=== PATIENT | male | born 1980 | race Caucasian/White ===

== ENCOUNTER 2016-03-29 13:54 | Inpatient (IN) | payer MEDICARE, MEDICAID ==
--- NOTE | 2016-03-29 14:13 | ED ---
Psych HPI - General Chief Complaint: Psychiatric Symptoms Stated Complaint: Mental Health Time Seen by Provider: 03/29/16 14:05 Source: patient, RN notes reviewed Mode of arrival: ambulatory - History of Present Illness Initial Comments: 36-year-old male presents to the emergency Department chief complaint of suicidal thoughts. Patient states he felt this way for a few days. Patient does admit to a history of depression. Patient states he has been using his medications. Patient states he has had any fever chills. Patient states isn't currently having a plan. Patient states this because stress with his girlfriend. Patient denies any acute health problems. Patient states he did not try anything and he did not attempt any suicide at home. Patient states he has attempted in the past by stabbing himself. Patient states he has been admitted to the psychiatric unit before. Patient denies any recent fever, chills, shortness of breath, chest pain, back pain, abdominal pain, nausea vomiting, numbness or tingling, dysuria or hematuria, constipation or diarrhea, headaches or visual changes, or any other current symptoms. - Related Data Home Medications Medication Instructions Recorded Confirmed FLUoxetine HCL [PROzac] 40 mg PO DAILY 03/29/16 03/29/16 buPROPion SR [Wellbutrin Sr] 150 mg PO BID 03/29/16 03/29/16 lamoTRIgine [LaMICtal] 50 mg PO DAILY 03/29/16 03/29/16 Previous Rx's Medication Instructions Recorded ARIPiprazole [Abilify] 30 mg PO DAILY #10 tab 03/31/15 Allergies Allergy/AdvReac Type Severity Reaction Status Date / Time clarithromycin [From Biaxin] Allergy Rash/Hives Verified 03/29/16 14:13 quetiapine fumarate Allergy Unknown Verified 03/29/16 14:13 [From Seroquel] Review of Systems ROS Statement: Those systems with pertinent positive or pertinent negative responses have been documented in the HPI. ROS Other: All systems not noted in ROS Statement are negative. Past Medical History Past Medical History: No Reported History Additional Past Medical History / Comment(s): left inguinal hernia History of Any Multi-Drug Resistant Organisms: None Reported Past Surgical History: Hernia Repair Past Psychological History: Bipolar, Schizophrenia Smoking Status: Current every day smoker Past Alcohol Use History: None Reported Past Drug Use History: None Reported General Exam Limitations: no limitations General appearance: alert, in no apparent distress ENT exam: Present: normal exam, mucous membranes moist Neck exam: Present: normal inspection. Absent: tenderness, meningismus, lymphadenopathy Respiratory exam: Present: normal lung sounds bilaterally. Absent: respiratory distress, wheezes, rales, rhonchi, stridor Cardiovascular Exam: Present: regular rate, normal rhythm, normal heart sounds. Absent: systolic murmur, diastolic murmur, rubs, gallop, clicks Neurological exam: Present: alert, oriented X3, CN II-XII intact. Absent: motor sensory deficit Psychiatric exam: Present: depressed, suicidal ideation. Absent: homicidal ideation Skin exam: Present: warm, dry, intact Course Vital Signs 03/29/16 13:58 Temperature 98.3 F Pulse Rate 102 H Respiratory 18 Rate Blood Pressure 136/83 O2 Sat by Pulse 94 L Oximetry Medical Decision Making - Medical Decision Making 36-year-old male presents to the emergency department with a chief complaint of suicidal ideation without a plan. At this time the patient does not appear to be suffering from acute medical emergencies. This time patient is cleared to be evaluated by psychiatry. At this time they will admit the patient to psychiatry. The patient is tender on the plan. - Lab Data Lab Results 03/29/16 Range/Units 14:35 Urine Opiates Screen Not Detected (NotDetected) Ur Oxycodone Screen Not Detected (NotDetected) Urine Methadone Screen Not Detected (NotDetected) Ur Propoxyphene Screen Not Detected (NotDetected) Ur Barbiturates Screen Not Detected (NotDetected) U Tricyclic Antidepress Not Detected (NotDetected) Ur Phencyclidine Scrn Not Detected (NotDetected) Ur Amphetamines Screen Not Detected (NotDetected) U Methamphetamines Scrn Not Detected (NotDetected) U Benzodiazepines Scrn Detected H (NotDetected) Urine Cocaine Screen Not Detected (NotDetected) U Marijuana (THC) Screen Not Detected (NotDetected) Disposition Clinical Impression: Depression Disposition: TRANSFER TO PSYCH HOSP/UNIT Time of Disposition: 15:34
[2016-03-29] MEDS ORDERED: MAG HYDROX/AL HYDROX/SIMETH 30 ML CUP PO PRN (15:42)
[2016-03-29] MEDS ORDERED: MAGNESIUM HYDROXIDE 2,400 MG/10 ML CUP PO PRN (15:42)
[2016-03-29] MEDS ORDERED: ACETAMINOPHEN TAB 325 MG TAB PO PRN (15:42)
[2016-03-29 15:49] LABS: Appearance,Urine Clear (Clear); Bilirubin,Urine Negative (Negative); Glucose,Urine (UA) Negative (Negative); Ketones,Urine 1+ (Negative); Leukocyte Esterase,Urine Negative (Negative); Nitrite,Urine Negative (Negative); Protein,Urine Negative (Negative); Specific Gravity,Urine 1.021 (1.001-1.035); UA Billing (MACRO vs. MICRO) CHEM; Urobilinogen,Urine <2.0 mg/dL (<2.0)
[2016-03-29] MEDS: NICOTINE 14MG/24HR PATCH TRANSDERM SCH (16:15)
[2016-03-29 16:54] VITALS: BMI 28.6
[2016-03-29] MEDS ORDERED: HALOPERIDOL LACTATE 5 MG/ML 1 ML VIAL IM PRN (19:50)
[2016-03-29] MEDS ORDERED: LORazepam 2 MG/ML SYRINGE IM PRN (19:52)
[2016-03-29] MEDS ORDERED: OLANZapine 10 MG TAB PO PRN (19:57)
[2016-03-29] MEDS ORDERED: OLANZapine 5 MG TAB PO SCH (21:00)
[2016-03-29] MEDS: OLANZapine 10 MG TAB PO SCH (21:28)
--- NOTE | 2016-03-30 07:54 | HP ---
DATE OF ADMISSION: 03/29/2016. IDENTIFYING DATA: Patient is a 36-year-old male, 1980. He was referred through the emergency room for admission. CHIEF COMPLAINT: The patient was in an agitated state. He was depressed. He had thoughts of suicide. He has had increasing problems with depression over the last few weeks. He identifies the main stress issue being interactions between him and his girlfriend. He has had past suicide attempt. HISTORY OF PRESENTING ILLNESS: Patient has had long-term psychiatric issues. He had a prior psychiatric hospitalization at this facility around 2013. He also has had a hospitalization at [facility]. He was vague about the details. According to medical records, he had a charge of criminal sexual conduct and was required to register as sex offender in that situation. He got depressed and anxious as part of his hospitalization, he was discharged on a combination of Depakote 500 mg twice a day and Abilify 30 mg a day. No further details are available at the time of dictation. He currently reports that he has been on Prozac. He is not sure of the dose, Lamictal which he says Dr. Michelle has recently increased, though he is not sure of the dose and Abilify. He also has been prescribed Wellbutrin recently, though he says it caused him shakes, so he stopped the medication. He also had somewhat of a rash. He was vague about what the indications were for his medications. He says that in the past. He has been diagnosed with bipolar disorder and schizophrenia He has been involved with professional counseling and apparently they have indicated to him that they are making a referral for psychiatrist, though he is not seeing one of late. He has been sleeping poorly. He has loss of motivation, energy and interest. He denies hallucinations or delusions. He does not identify paranoia. He does not indicate any significant past traumas or posttraumatic symptoms. He is admitted for further evaluation. Substance use history: Patient reports that he had he is alcoholic and had both alcohol and marijuana dependence. He stopped both 12 years ago and says he has not had use of abusive substances since then. MEDICAL HISTORY: Patient reports no current or chronic general health complaints. Further medical history, review of systems and physical exam as per medical consultation. FAMILY HISTORY/ SOCIAL HISTORY: Patient reports that he has been involved in up and down relationship with a girlfriend. He said that recently she filed a PPO though he was vague about details. He says he had stress with a child that was lost due to tubal . He did not provide much additional information. Diagnostic studies: Urinalysis unremarkable. Urine drug screen positive for benzodiazepines. MENTAL STATUS EXAM: Patient was dressed in hospital garb. Eye contact was fair. Psychomotor activity was slowed. Speech was monotone. He answered questions with brief responses. He was not too spontaneous or interactive. His affect was flat. His mood reserved. He appeared significantly distressed and anxious. There was no immediate evidence for thought disorder. He was vague about thoughts of self-harm. He had indicated no thoughts of harm to others. Cognitive exam, he did not make an effort to answer formal cognitive questions. He appeared oriented to his current situation. He seemed aware of recent and past events. Attention and was fair, insight limited. Judgment impaired. Fund of knowledge within average range. ASSESSMENT: This 36-year-old male has a complicated long-term history of psychiatric issues. He has had past psychiatric hospitalizations. His current situation and current stressors are clear. There may be some legal issues as part of this admission. We will need to get further information from outside resources. Strengths include his being able to maintain sobriety for 12 years. Weakness includes limited social support network and legal issues. DIAGNOSES: 1. Major depression, rule out psychotic features. 2. Alcohol dependence in remission by patient report. RECOMMENDATIONS: Patient will be admitted for comprehensive medical, psychiatric and psychosocial evaluation. We will make efforts to engage the patient in individual and group therapeutic activities. I will start the patient on Zyprexa 5 mg twice a day. The aim of Zyprexa is to help reduce physiologic stress response as it relates to anxiety and depressive symptoms the patient is reporting. We will need to get further input from outpatient resources. We will focus on stabilization and discharge planning.
[2016-03-30 08:16] LABS: Basophils % (A) 1 %; CH 29.5; CHCM 33.9; Eosinophils # (A) 0.1 k/uL (0-0.7); Eosinophils % (A) 2 %; HCT 46.2 % (39.0-53.0); HGB 15.4 gm/dL (13.0-17.5); Luc # (Auto) 0.09; Luc % (Auto) 2; Lymphocytes # (A) 1.5 k/uL (1.0-4.8); Lymphocytes % (A) 32 %; MCH 29.1 pg (25.0-35.0); MCHC 33.3 g/dL (31.0-37.0); MCV 87.5 fL (80.0-100.0); Mean Platelet Volume 6.6; Monocytes # (A) 0.2 k/uL (0-1.0); Monocytes % (A) 5 %; Neutrophils # (A) 2.8 k/uL (1.3-7.7); Neutrophils % (A) 58 %; RBC 5.28 m/uL (4.30-5.90); WBC 4.8 k/uL (3.8-10.6); WBC (Perox) 4.91
[2016-03-30 08:49] LABS: ALT 33 U/L (21-72); AST 18 U/L (17-59); Alkaline Phosphatase 79 U/L (38-126); Anion Gap 12 mmol/L; Blood Urea Nitrogen 12 mg/dL (9-20); Calcium 9.4 mg/dL (8.4-10.2); Carbon Dioxide 29 mmol/L (22-30); Chloride 104 mmol/L (98-107); Glucose 93 mg/dL (74-99); Non-African American GFR(MDRD) >60 (>60 ml/min/1.73 sqM); Potassium 4.4 mmol/L (3.5-5.1); Sodium 145 mmol/L (137-145); Total Bilirubin 0.7 mg/dL (0.2-1.3)
[2016-03-30] MEDS: NICOTINE 14MG/24HR PATCH TRANSDERM SCH (09:15)
[2016-03-30] MEDS: FLUoxetine HCL 20 MG CAP PO SCH (09:15)
[2016-03-30] MEDS: OLANZapine 10 MG TAB PO SCH ×2 (09:15→21:10)
--- NOTE | 2016-03-30 09:21 | P.PN ---
Progress Note - Text Interval history: The patient is found in his room he follows me to an interview room. The patient was admitted to the mental health unit by and his evaluation note was reviewed. The patient states he presented with acute suicidal ideation. Apparently he had some kind of contact with his girlfriend and her mother threatened to call the police on him. He states there is a PPO in place against him on the girlfriend's by half. He states that he became fearful he would go to long term again and states he can go back. He has a prior history of a criminal sexual conduct conviction involving 11-year-old girl. He reports since 2013 he has been maintained on Prozac, Abilify, Lamictal. These are prescribed by his primary care physician. Apparently his primary care physician also placed him on Wellbutrin and he experienced shaking and a rash. He just started following up at [facility] with a therapist Latonia Youngblood but has not yet seen a prescriber there. The patient reports that he feels safe here in the hospital and he intends on attending group. He has been residing at the [address] [place] [address] but is hoping to reside with his father upon discharge. Mental status exam: The patient is a male he is dressed in his own clothing he is balding he is wearing eyeglasses. Eye contact is appropriate. He has little spontaneous speech but answers questions asked of him briefly. His cognitive abilities appear rather concrete. He reports his mood is better because he feels safer here. He endorses recent depression and hopelessness feelings. He is endorsing no homicidal thoughts. He endorses no auditory or visual hallucinations he is endorsing no specific delusions and we reviewed several types. Insight and judgment limited. He demonstrates no verbal or physical aggressiveness but does report that he struggles with anger feelings and reactions. Plan: The patient will continue on the Prozac and Zyprexa 10 mg twice daily. He is comfortable with this medication change that was made yesterday. We will monitor him for safety. He is encouraged to participate in the milieu. Social work will meet with the patient in terms of discharge planning. We discussed the importance of obeying PPO restrictions and not calling his girlfriend. He requires further psychiatric evaluation for safety reasons.
--- NOTE | 2016-03-31 07:08 | CONS ---
DATE OF CONSULTATION: PSYCH CONSULT I have been out of the office and hospital ill. I came to see this patient and he cannot be found and will see him on rounds the next day.
[2016-03-31] MEDS: FLUoxetine HCL 20 MG CAP PO SCH (08:19)
[2016-03-31] MEDS: OLANZapine 10 MG TAB PO SCH ×2 (08:19→21:13)
[2016-03-31] MEDS: NICOTINE 14MG/24HR PATCH TRANSDERM SCH (08:20)
--- NOTE | 2016-03-31 09:55 | P.PN ---
Progress Note - Text Interval history: The patient is found in group he follows me to an interview room. He reports that his mood is improving. He slept 7-8 hours last night appetite is stable. We discussed his current medications he finds that the Zyprexa is helpful he is reporting no side effects from it. He states he feels better on the Zyprexa and Prozac than he did with the Wellbutrin and Lamictal. He had a phone conversation with his father and does not think he will be able to stay with him but states he is able to stay with a friend named Stuart. We discussed the presenting circumstances and how it is important to obey the PPO order and not contact his ex-girlfriend. He has been attending groups. He found the anger management discussion helpful yesterday. Mental status exam: The patient is alert he seated calmly he is dressed in his own clothing hygiene grooming fair. Eye contact is appropriate. He reports his mood is "better". He feels that suicidal thoughts are resolving. He has no homicidal ideation. He is endorsing no auditory or visual hallucinations he is endorsing no specific delusions. He demonstrates no verbal or physical aggressiveness. Insight and judgment improving. He is oriented to person place and date. He does have a concrete cognitive capacity. Plan: The patient will continue on his current medications we will monitor him for safety and encourage his continued participation in the milieu. Social work will arrange a support meeting if possible. We anticipate discharging him tomorrow if he demonstrates further clinical stability/improvement. Vital signs reviewed. Labs reviewed.
[2016-04-01 08:27] VITALS: BP 128/55; PULSE 76; RESP 18; TEMP 98.1
--- NOTE | 2016-04-01 08:39 | P.DS ---
Providers Date of admission: 03/29/16 15:38 Expected date of discharge: 04/01/16 Attending physician: Scooter Skelton Consults: 03/29/16 15:42 Consult Physician Routine Consulting Provider: Edy Michelle Consult Reason/Comments: Follow up H & P Do you want consulting provider notified?: Yes Primary care physician: Edy Michelle - Discharge Diagnosis(es) (1) Major depressive disorder, recurrent Current Visit: Yes Status: Acute Priority: High Hospital Course: Brief summary of admission note: The patient is a 36-year-old male who was admitted to the mental health unit through the emergency room. He presented depressed agitated and had thoughts of suicide. He reported having increasing symptoms of depression over the last few weeks with the most recent stressor being interactions between him and his former girlfriend. His psychotropic medications had been managed by his primary care physician and he felt that they were not effective. For full detail please refer to the psychiatric evaluation dated 03/29/2016. Summary of hospital course: The patient was admitted to the mental health unit voluntarily. He was initially evaluated by . The patient was continued on Prozac at a dose of 40 mg daily his Abilify was discontinued and he was placed on Zyprexa 10 mg twice daily. The patient attended groups. He reported a resolution of suicidal ideation. He found groups helpful especially those focusing on anger management. He demonstrated no agitated behavior. He was seen for a routine medical consultation. He reported no side effects from his medications. He plans to reside at the [address] [place] [address] or at a friend's home upon discharge. We discussed the importance of him not violating the PPO involving his former girlfriend. At no point did he voice any thoughts of harming anyone else. Mental status exam: The patient is alert he seated calmly in the chair he wears eyeglasses he is dressed casually in his own clothes. Hygiene grooming adequate. He is pleasant he is cooperative and easily directable. He reports his mood is "good". Affect is euthymic in appearance. He denies having any hopelessness thinking or any suicidal or homicidal ideation intent or plan. He notes having no aggressive impulses. He is endorsing no auditory or visual hallucinations he is endorsing no specific delusions as we reviewed several types. Thought process is linear brief. He demonstrates no tangential thinking loose associations or flight of ideas. Insight and judgment improved, grossly intact. He demonstrates no verbal or physical aggressiveness. He is alert and oriented to person place and date. Cognitively speaking he is concrete. Impressions 1. Major depressive disorder recurrent severe without psychosis, alcohol use disorder in sustained remission 2. Psychosocial dysfunction due to exacerbated psychiatric symptoms and also relationship strain Plan: The patient will be discharged from the mental health unit today. He plans to reside at the detention or with a friend. He will continue on Prozac 40 mg daily and Zyprexa 10 mg twice daily. There is no imminent safety risk is appropriate for continued care as an outpatient. Social work will arrange his outpatient mental health follow-up appointment. He was offered an opportunity to have an in person support meeting. He has abstained from any alcohol or substance use and he is encouraged to continue doing so. He reports no immediate access or ownership of firearms. He is encouraged to present to the hospital again with any acute psychiatric symptoms. Patient Condition at Discharge: Stable Plan - Discharge Summary Discharge Medication List ARIPiprazole [Abilify] 30 mg PO DAILY #10 tab 03/31/15 [Rx] FLUoxetine HCL [PROzac] 40 mg PO DAILY 03/29/16 [History] buPROPion SR [Wellbutrin Sr] 150 mg PO BID 03/29/16 [History] lamoTRIgine [LaMICtal] 50 mg PO DAILY 03/29/16 [History] Follow up Appointment(s)/Referral(s): Edy Michelle MD [Primary Care Provider] - 1-2 days
[2016-04-01] MEDS: OLANZapine 10 MG TAB PO SCH (09:22)
[2016-04-01] MEDS: FLUoxetine HCL 20 MG CAP PO SCH (09:22)
== END 2016-04-01 10:31 | disposition home or self-care (01) | DRG 885 ==
LOC: EC 13:54 → 3MHU 15:38
PROVIDERS: ADMIT Psychiatry & Neurology Psychiatry; ATTEND Psychiatry & Neurology Psychiatry
DX: F33.2 Major depressive disorder, recurrent severe without psychotic features (principal); R45.851 Suicidal ideations; F41.9 Anxiety disorder, unspecified; F10.21 Alcohol dependence, in remission; F17.200 Nicotine dependence, unspecified, uncomplicated; F59 Unspecified behavioral syndromes associated with physiological disturbances and physical factors
CPT/HCPCS: 80053; 80306; 81003; 82075; 84443; 85025; 99285

== ENCOUNTER 2016-05-04 23:46 | Emergency (ER) | payer MEDICARE, OTHER ==
[2016-05-04 23:52] VITALS: TEMP 97
[2016-05-04] MEDS ORDERED: KETOROLAC 60 MG/2 ML VIAL IM STA (23:59)
[2016-05-04] MEDS ORDERED: ORPHENADRINE 30 MG/ML 2 ML VIAL IM STA (23:59)
--- NOTE | 2016-05-05 00:04 | ED ---
Extremity Problem HPI - General Chief complaint: Extremity Problem,Nontraumatic Stated complaint: L Shoulder Pain Time Seen by Provider: 05/04/16 23:54 Source: patient, RN notes reviewed Mode of arrival: ambulatory Limitations: no limitations - History of Present Illness Initial comments: 36-year-old male presents to the emergency department with a chief complaint of left shoulder pain. Patient states he started with pain along the top of his left shoulder and sometimes will cause him to have pain when he moves his arm. Patient states moving the arm past about a 90 angle causes some increased discomfort. Patient states there is no falls traumas or injuries. Patient states sometimes his neck will get stuck due to the chest as well. Patient states everything went to force him he was concerned. Patient denies any injury that he is aware of to the area.Patient denies any recent fever, chills, shortness of breath, chest pain, back pain, abdominal pain, nausea vomiting, numbness or tingling, dysuria or hematuria, constipation or diarrhea, headaches or visual changes, or any other current symptoms. - Related Data Previous Rx's Medication Instructions Recorded FLUoxetine HCL [PROzac] 40 mg PO DAILY #30 capsule 04/01/16 OLANZapine [ZyPREXA] 10 mg PO BID #60 tab 04/01/16 Orphenadrine [Norflex] 100 mg PO Q12H #10 tablet.er 05/05/16 Allergies Allergy/AdvReac Type Severity Reaction Status Date / Time clarithromycin [From Biaxin] Allergy Rash/Hives Verified 05/04/16 23:52 quetiapine fumarate Allergy Unknown Verified 05/04/16 23:52 [From Seroquel] Review of Systems ROS Statement: Those systems with pertinent positive or pertinent negative responses have been documented in the HPI. ROS Other: All systems not noted in ROS Statement are negative. Past Medical History Past Medical History: No Reported History Additional Past Medical History / Comment(s): left inguinal hernia History of Any Multi-Drug Resistant Organisms: None Reported Past Surgical History: Hernia Repair Past Psychological History: Bipolar, Depression, Schizoaffective Disorder, Schizophrenia Smoking Status: Former smoker Past Alcohol Use History: None Reported Past Drug Use History: Cocaine, Marijuana Additional Drug Use History / Comment(s): Stated he has not used Crack or Marijuana in 12 years. Patient currently tested positive for Benzo, but denies any benzo use General Exam - General Exam Comments Initial Comments: General: The patient is awake and alert, in no distress, and does not appear acutely ill. Neck: The neck is supple, there is no tenderness. Cardiovascular: There is a regular rate and rhythm. No murmur, rub or gallop is appreciated. Respiratory: Lungs are clear to auscultation, respirations are non-labored, breath sounds are equal. No wheezes, stridor, rales, or rhonchi. Musculoskeletal: Sensation intact with 2+ pulses Left upper joint. Full range of motion of left elbow. Patient's range of motion left shoulder however pain passing degrees in all adler. Patient does have tenderness patient along the trapezius muscle on the left. Full range of motion of the neck with no pain to palpation. Neurological: CN II-XII intact, There are no obvious motor or sensory deficits. Coordination appears grossly intact. Speech is normal. Skin: Skin is warm and dry and no rashes or lesions are noted. Psychiatric: Normal mood and affect. Limitations: no limitations Course Vital Signs 05/04/16 23:48 Temperature 97.0 F L Pulse Rate 79 Respiratory 18 Rate Blood Pressure 121/68 O2 Sat by Pulse 97 Oximetry Medical Decision Making - Medical Decision Making 36-year-old male presents emergency department chief complaint of left shoulder pain. This appears to be a trapezius strain. X-ray does not show any acute process. We'll start patient on muscle relaxers we discussed heat return parameters and follow-up. We discussed all the patient's questions. He stated that he understood and he has been given the plan. All questions have been answered. He will be discharged. - Radiology Data Radiology results: report reviewed, image reviewed Disposition Clinical Impression: Strain of left trapezius muscle Disposition: HOME SELF-CARE Condition: Stable Instructions: Muscle Strain (ED) Additional Instructions: Please use medication as discussed. Please follow up with family doctor if symptoms have not improved over the next two days. Please return to the emergency room if your symptoms increase or worsen or for any other concerns. Prescriptions: Orphenadrine [Norflex] 100 mg PO Q12H #10 tablet.er Referrals: Edy Michelle MD [Primary Care Provider] - 1-2 days Time of Disposition: 01:03
--- NOTE | 2016-05-05 00:36 | XR ---
EXAM: XR Left Shoulder Complete, 2 or More Views. CLINICAL HISTORY: Reason: Pain TECHNIQUE: Two or more views of the left shoulder. COMPARISON: No relevant prior studies available. FINDINGS: Bones/joints: Small subcentimeter sclerotic lesion in the inferior glenoid probably benign bone island. No acute fracture. No dislocation. Soft tissues: Unremarkable. IMPRESSION: No acute findings.
[2016-05-05 01:21] VITALS: BP 119/79; PULSE 70; RESP 16
== END 2016-05-05 01:19 | disposition home or self-care (01) ==
LOC: EC 23:46
DX: S29.012A Strain of muscle and tendon of back wall of thorax, initial encounter (principal); Z87.891 Personal history of nicotine dependence; Z88.1 Allergy status to other antibiotic agents; Z88.8 Allergy status to other drugs, medicaments and biological substances; X50.9XXA Other and unspecified overexertion or strenuous movements or postures, initial encounter
CPT/HCPCS: 73030; 99283; 96372 ×2; J2360; J1885

== ENCOUNTER 2017-09-06 22:14 | Emergency (ER) | payer MEDICARE, OTHER ==
[2017-09-06 22:30] VITALS: RESP 18
[2017-09-06] MEDS ORDERED: IBUPROFEN 800 MG TAB PO STA (22:59)
[2017-09-06] MEDS ORDERED: ACETAMINOPHEN TAB 500 MG TAB PO STA (22:59)
[2017-09-06] MEDS ORDERED: SULFAMETH-TMP DS STARTER PACK 2 TAB BTL PO STA (23:00)
[2017-09-06] MEDS ORDERED: LIDOCAINE 1% INJ 10MG/ML (20 ML MDV) SQ STA (23:00)
--- NOTE | 2017-09-06 23:02 | ED ---
Skin/Abscess/FB HPI - General Chief complaint: Skin/Abscess/Foreign Body Stated complaint: abscess/cough Time Seen by Provider: 09/06/17 22:41 Source: patient, RN notes reviewed, old records reviewed Mode of arrival: ambulatory Limitations: no limitations - History of Present Illness Initial comments: Patient is a 37-year-old male presents for his arm she went cough congestion for the last 2 days. He also reports that over the past week he has a abscess over his tailbone. Patient reports that his ever had an abscess over his stone before. Patient reports no peripheral paresthesias. No saddle anesthesias. No trauma to the lower back. Patient ports that his cough has been somewhat productive. He is a smoker. - Related Data Previous Rx's Medication Instructions Recorded FLUoxetine HCL [PROzac] 40 mg PO DAILY #30 capsule 04/01/16 OLANZapine [ZyPREXA] 10 mg PO BID #60 tab 04/01/16 Orphenadrine [Norflex] 100 mg PO Q12H #10 tablet.er 05/05/16 Sulfamethox-Tmp 800-160Mg [Bactrim 2 tab PO Q12HR #40 tab 09/06/17 DS 800-160 mg] Allergies Allergy/AdvReac Type Severity Reaction Status Date / Time clarithromycin [From Biaxin] Allergy Rash/Hives Verified 09/06/17 22:29 quetiapine fumarate Allergy Unknown Verified 09/06/17 22:29 [From Seroquel] Review of Systems ROS Statement: Those systems with pertinent positive or pertinent negative responses have been documented in the HPI. ROS Other: All systems not noted in ROS Statement are negative. Past Medical History Past Medical History: No Reported History Additional Past Medical History / Comment(s): left inguinal hernia History of Any Multi-Drug Resistant Organisms: None Reported Past Surgical History: Hernia Repair Past Psychological History: Bipolar, Depression, Schizoaffective Disorder, Schizophrenia Smoking Status: Current every day smoker Past Alcohol Use History: None Reported Past Drug Use History: Cocaine, Marijuana General Exam - General Exam Comments Initial Comments: 29-year-old male. Alert and oriented. No significant distress. Limitations: no limitations General appearance: alert, in no apparent distress Head exam: Present: atraumatic, normocephalic, normal inspection Eye exam: Present: normal appearance, PERRL, EOMI. Absent: scleral icterus, conjunctival injection, periorbital swelling ENT exam: Present: normal exam, mucous membranes moist Neck exam: Present: normal inspection. Absent: tenderness, meningismus, lymphadenopathy Respiratory exam: Present: normal lung sounds bilaterally. Absent: respiratory distress, wheezes, rales, rhonchi, stridor Cardiovascular Exam: Present: regular rate, normal rhythm, normal heart sounds. Absent: systolic murmur, diastolic murmur, rubs, gallop, clicks GI/Abdominal exam: Present: soft, normal bowel sounds. Absent: distended, tenderness, guarding, rebound, rigid Extremities exam: Present: normal inspection, full ROM, normal capillary refill. Absent: tenderness, pedal edema, joint swelling, calf tenderness Back exam: Absent: normal inspection (Minutes of erythematous pilonidal abscess. Measures approximately 5 cm..) Neurological exam: Present: alert, oriented X3, CN II-XII intact Psychiatric exam: Present: normal affect, normal mood Course Vital Signs 09/06/17 09/07/17 22:26 00:03 Temperature 99.8 F H 98.6 F Pulse Rate 113 H 102 H Respiratory 18 18 Rate Blood Pressure 125/80 135/86 O2 Sat by Pulse 97 98 Oximetry Procedures - Incision & Drainage Consent Obtained: verbal consent Time Out Performed?: No Site: buttock Size (cm): 5 Anesthetic Used: lidocaine 1% Amount (mLs): 6 I&D Cleaning Method: Iodine Sterile Field Used?: Yes Scalpel Used: #11 I&D Drainage Obtained: Pus, Blood Packing: Iodoform Culture Obtained?: Yes Patient Tolerated Procedure: well, no complications Medical Decision Making - Medical Decision Making Patient is a 29-year-old male chief complaint of cough congestion as well as an abscess over his tailbone. Patient since a pilonidal abscess. Incision and drainage was performed. Approximately 10 mL of pus was removed. Iodoform packing was placed. I discussed that he should follow-up with on-call surgeon for further treatment and expiration and repacking. He also complains of a cough and congestion. Chest x-ray shows no evidence of pneumonia. This time we 'll put the Patient on antibiotics to cover for the abscess. Culture obtained. - Radiology Data Radiology results: report reviewed Subsequent methanol atelectasis left lung base. Inspiration is decreased slightly compared old exam. Disposition Clinical Impression: Pilonidal abscess Disposition: HOME SELF-CARE Condition: Good Instructions: Abscess Incision and Drainage (ED) Additional Instructions: Patient advised follow-up with on-call surgeon. Take the antibiotics as prescribed. Follow-up with her primary care physician as well. Return to the emergency department if any alarming signs or symptoms occur. Prescriptions: Sulfamethox-Tmp 800-160Mg [Bactrim DS 800-160 mg] 2 tab PO Q12HR #40 tab Is patient prescribed a controlled substance at d/c from ED?: No When asked, does pt state using other controlled substances?: No If prescribed controlled substance>3 days was MAPS reviewed?: No If opioid is for acute pain is fill amount 7 days or less?: No If Rx opioid, was Start Talking consent form obtained?: No Referrals: Edy Michelle MD [Primary Care Provider] - 1-2 days Karlene Grossman MD [STAFF PHYSICIAN] - 1-2 days Time of Disposition: 23:55
--- NOTE | 2017-09-06 23:02 | XR ---
EXAMINATION TYPE: XR chest 2V DATE OF EXAM: 09/06/2017 COMPARISON: 12/19/2015 HISTORY: Cough TECHNIQUE: Frontal and lateral views of the chest are obtained. FINDINGS: There is some linear density at the left lung base. Heart and mediastinum are normal. Diap hragm is normal. There is no heart failure. Bony thorax is intact. IMPRESSION: Subsegmental atelectasis at the left lung base. Inspiration is decreased slightly compar ed to old exam.
[2017-09-07 00:05] VITALS: BP 135/86; PULSE 102; TEMP 98.6
--- NOTE | 2017-09-08 08:33 | CDI ---
Documentation Clarification OP Dear JULIO C Hernandez/ Gustavo Dupont MD Please do addendum to ED report for missing procedure for Incision and Drainage , Pilonidal Cyst Thank you, Melissa Boateng Alliance Manager If you have any questions, please contact [employer] at [phone] [facility]
== END 2017-09-07 00:03 | disposition home or self-care (01) ==
LOC: EC 22:14
DX: L05.01 Pilonidal cyst with abscess (principal); R05 Cough; R09.81 Nasal congestion; F17.200 Nicotine dependence, unspecified, uncomplicated; Z88.1 Allergy status to other antibiotic agents; Z88.8 Allergy status to other drugs, medicaments and biological substances
CPT/HCPCS: 99284; 10080; 87070; 87205; 71046; J2001

== ENCOUNTER 2018-11-15 21:22 | Emergency (ER) | payer MEDICARE, OTHER ==
[2018-11-15 21:32] VITALS: BP 130/87; PULSE 119; RESP 18; TEMP 98.1
--- NOTE | 2018-11-15 22:12 | ED ---
Psych HPI - General Chief Complaint: Psychiatric Symptoms Stated Complaint: Vomiting/Hives Time Seen by Provider: 11/15/18 21:35 Source: patient, RN notes reviewed Mode of arrival: ambulatory Limitations: no limitations - History of Present Illness Initial Comments: This a 38-year-old male presents emergency department for psychiatric evaluation medication adjustment. Patient states he was started on Depakote for bipolar disorder and schizophrenia. Patient states that it's making him sick. Patient states may count which at times. Patient states that he cannot keep it down. Patient has no physical complaints at this time. Denies being suicidal or homicidal denies any current illicit drug use no alcohol abuse - Related Data Home Medications Medication Instructions Recorded Confirmed ARIPiprazole [Abilify] 30 mg PO DAILY 11/15/18 11/15/18 Atorvastatin [Lipitor] 40 mg PO DAILY 11/15/18 11/15/18 Divalproex Sodium [Depakote] 1,000 mg PO BID 11/15/18 11/15/18 Naproxen 500 mg PO BID PRN 11/15/18 11/15/18 Previous Rx's Medication Instructions Recorded OLANZapine [ZyPREXA] 10 mg PO BID #60 tab 04/01/16 Allergies Allergy/AdvReac Type Severity Reaction Status Date / Time clarithromycin [From Biaxin] Allergy Rash/Hives Verified 11/15/18 23:23 quetiapine fumarate Allergy Unknown Verified 11/15/18 23:23 [From Seroquel] Review of Systems ROS Statement: Those systems with pertinent positive or pertinent negative responses have been documented in the HPI. ROS Other: All systems not noted in ROS Statement are negative. Past Medical History Past Medical History: No Reported History Additional Past Medical History / Comment(s): left inguinal hernia History of Any Multi-Drug Resistant Organisms: None Reported Past Surgical History: Hernia Repair Past Psychological History: Bipolar, Depression, Schizoaffective Disorder, Schizophrenia Smoking Status: Current every day smoker Past Alcohol Use History: None Reported Past Drug Use History: Cocaine, Marijuana General Exam Limitations: no limitations General appearance: alert, in no apparent distress Head exam: Present: atraumatic, normocephalic, normal inspection Eye exam: Present: normal appearance, PERRL, EOMI. Absent: scleral icterus, conjunctival injection, periorbital swelling ENT exam: Present: normal exam, normal oropharynx, mucous membranes moist Neck exam: Present: normal inspection, full ROM. Absent: tenderness, meningismus, lymphadenopathy Respiratory exam: Present: normal lung sounds bilaterally. Absent: respiratory distress, wheezes, rales, rhonchi, stridor Cardiovascular Exam: Present: regular rate, normal rhythm, normal heart sounds. Absent: systolic murmur, diastolic murmur, rubs, gallop, clicks GI/Abdominal exam: Present: soft, normal bowel sounds. Absent: distended, tenderness, guarding, rebound, rigid Neurological exam: Present: alert, oriented X3, CN II-XII intact Psychiatric exam: Present: normal affect, normal mood Skin exam: Present: warm, dry, intact, normal color. Absent: rash Course Vital Signs 11/15/18 21:29 Temperature 98.1 F Pulse Rate 119 H Respiratory 18 Rate Blood Pressure 130/87 O2 Sat by Pulse 97 Oximetry Medical Decision Making - Medical Decision Making 38-year-old male presented for psychiatric evaluation, medication adjustment. Patient states his typical is making him sick. Patient did have recent increase of his Depakote level was drawn which she is subtherapeutic. Patient will be discharged - Lab Data Lab Results 11/15/18 Range/Units 23:00 Valproic Acid 12.9 ug/mL Disposition Clinical Impression: Depression, Medication reaction Disposition: HOME SELF-CARE Condition: Stable Instructions (If sedation given, give patient instructions): Depression (DC) Additional Instructions: Please return to the Emergency Department if symptoms worsen or any other concerns. Is patient prescribed a controlled substance at d/c from ED?: No Referrals: Edy Michelle MD [Primary Care Provider] - 1-2 days Time of Disposition: 23:38
== END 2018-11-16 00:12 | disposition home or self-care (01) ==
LOC: EC 21:22
DX: F31.9 Bipolar disorder, unspecified (principal); T42.6X5A Adverse effect of other antiepileptic and sedative-hypnotic drugs, initial encounter; F25.9 Schizoaffective disorder, unspecified; F17.200 Nicotine dependence, unspecified, uncomplicated; Z79.1 Long term (current) use of non-steroidal anti-inflammatories (NSAID); Z79.899 Other long term (current) drug therapy; Z88.1 Allergy status to other antibiotic agents; Z88.8 Allergy status to other drugs, medicaments and biological substances
CPT/HCPCS: 36415; 80164; 82075; 99284

== ENCOUNTER 2019-12-13 22:27 | Emergency (ER) | payer MEDICARE, OTHER ==
[2019-12-13] MEDS ORDERED: IPRATROPIUM-ALBUTEROL 3 ML NEB INHALATION STA (23:06)
[2019-12-13] MEDS ORDERED: methylPREDNISolone SOD SUCCI 125 MG/2 ML VIAL IM ONE (23:35)
[2019-12-13] MEDS ORDERED: guaiFENesin-Coden 100-10MG/5ML 10 ML CUP PO STA (23:35)
--- NOTE | 2019-12-13 23:38 | XR ---
EXAMINATION TYPE: XR chest 1V DATE OF EXAM: 12/13/2019 COMPARISON: 09/06/2017 HISTORY: Cough TECHNIQUE: Single view FINDINGS: There is no heart failure nor confluent pneumonic infiltrate. Costophrenic angles are clear . Bony thorax is intact. IMPRESSION: No active cardiopulmonary disease. Normal heart. Inspiration improved compared to last ex am. There is clearing of mild subsegmental atelectasis left lung base..
--- NOTE | 2019-12-14 00:12 | ED ---
URI HPI - General Chief Complaint: Upper Respiratory Infection Stated Complaint: cough Time Seen by Provider: 12/13/19 23:14 Source: patient Mode of arrival: ambulatory Limitations: no limitations - History of Present Illness Initial Comments: 39-year-old male patient presents to the emergency department today for evaluation of cough. Patient states he is an coughing for the last week. He states that the cough is becoming more severe. He does report white to clear sputum production. Denies any shortness of breath. States his chest does hurt when he coughs. Denies taking any medication for his symptoms. States he does have a history of asthma and has been using a Ventolin inhaler with little relief. Denies any hemoptysis. Denies fever or chills. Denies history of smoking. Denies nausea, vomiting, diarrhea. States it has had mild nasal congestion and sore throat. Denies any known exposure to COVID-19. Patient denies any recent rash, abdominal pain, constipation, back pain, numbness, tingling, dizziness, weakness, hematuria, dysuria, urinary urgency, urinary frequency, headache, visual changes, or any other complaints. - Related Data Home Medications Medication Instructions Recorded Confirmed ARIPiprazole [Abilify] 30 mg PO DAILY 11/15/18 11/15/18 Atorvastatin [Lipitor] 40 mg PO DAILY 11/15/18 11/15/18 Divalproex Sodium [Depakote] 1,000 mg PO BID 11/15/18 11/15/18 Naproxen 500 mg PO BID PRN 11/15/18 11/15/18 Previous Rx's Medication Instructions Recorded OLANZapine [ZyPREXA] 10 mg PO BID #60 tab 04/01/16 guaiFENesin-Coden 100-10MG/5ML 10 ml PO Q6H PRN 3 Days #120 ml 12/14/19 [Robitussin AC] methylPREDNISolone [Medrol Dose 4 mg PO DIRECTED #1 pack 12/14/19 Pack] Allergies Allergy/AdvReac Type Severity Reaction Status Date / Time clarithromycin [From Biaxin] Allergy Rash/Hives Verified 12/13/19 22:48 quetiapine fumarate Allergy Unknown Verified 12/13/19 22:48 [From Seroquel] Review of Systems ROS Statement: Those systems with pertinent positive or pertinent negative responses have been documented in the HPI. ROS Other: All systems not noted in ROS Statement are negative. Past Medical History Past Medical History: No Reported History Additional Past Medical History / Comment(s): left inguinal hernia History of Any Multi-Drug Resistant Organisms: None Reported Past Surgical History: Hernia Repair Past Psychological History: Bipolar, Depression, Schizoaffective Disorder, Schizophrenia Smoking Status: Never smoker Past Alcohol Use History: None Reported Past Drug Use History: Cocaine, Marijuana General Exam Limitations: no limitations General appearance: alert, in no apparent distress, other (This is a well developed, well nourished adult male patient in no acute distress. Vital signs upon presentation are temperature 97.7F, pulse 99, respirations 20, blood pressure 138/83, pulse ox 98% on room air.) Eye exam: Present: normal appearance, PERRL, EOMI. Absent: scleral icterus, conjunctival injection, periorbital swelling ENT exam: Present: normal exam, normal oropharynx, mucous membranes moist Respiratory exam: Present: normal lung sounds bilaterally, other (Frequent cough noted). Absent: respiratory distress, wheezes, rales, rhonchi, stridor Cardiovascular Exam: Present: regular rate, normal rhythm, normal heart sounds. Absent: systolic murmur, diastolic murmur, rubs, gallop, clicks GI/Abdominal exam: Present: soft, normal bowel sounds. Absent: distended, tenderness, guarding, rebound, rigid Neurological exam: Present: alert, oriented X3, CN II-XII intact Psychiatric exam: Present: normal affect, normal mood Skin exam: Present: warm, dry, intact, normal color. Absent: rash Course Vital Signs 12/13/19 12/13/19 12/13/19 22:44 23:10 23:19 Temperature 97.7 F Pulse Rate 99 98 96 Respiratory 20 Rate Blood Pressure 138/83 O2 Sat by Pulse 98 Oximetry 12/14/19 00:23 Temperature 98.2 F Pulse Rate 81 Respiratory 18 Rate Blood Pressure 125/79 O2 Sat by Pulse 97 Oximetry Medical Decision Making - Medical Decision Making 39-year-old male patient presented to the emergency department today for evaluation of worsening cough over the last week. Physical examination did reveal clear equal lung sounds. Vital signs are within normal ranges, oxygen saturation 98% on room air. Chest x-ray was obtained and showed no acute cardiopulmonary process. Patient did have frequent cough while in the department. He is given cough medication. To be discharged with steroids for possible bronchitis. He does have Ventolin inhaler at home he is instructed to continue to using this. COVID-19 swab is pending. He is instructed to follow- up with his primary care physician for recheck in 1-2 days. Return parameters were discussed in detail. He verbalizes understanding and agrees with this plan. - Radiology Data Radiology results: report reviewed, image reviewed One view x-ray of the chest is obtained. Report was reviewed in its entirety. Impression by Dr. Coats shows no active cardiopulmonary disease. Normal heart. Inspiration improved compared to last exam. There is clearing of mild subsegmental atelectasis left lung base. Disposition Clinical Impression: Acute bronchitis Disposition: HOME SELF-CARE Condition: Good Instructions (If sedation given, give patient instructions): Acute Bronchitis (ED) Additional Instructions: Take medications as directed. Follow-up with your primary care physician for recheck in 1-2 days. Return to the emergency department for any new, worsening, or concerning symptoms. Prescriptions: methylPREDNISolone [Medrol Dose Pack] 4 mg PO DIRECTED #1 pack guaiFENesin-Coden 100-10MG/5ML [Robitussin AC] 10 ml PO Q6H PRN 3 Days #120 ml PRN Reason: Cough Is patient prescribed a controlled substance at d/c from ED?: No Referrals: Edy Michelle MD [Primary Care Provider] - 1-2 days Time of Disposition: 00:12
[2019-12-14 00:25] VITALS: BP 125/79; PULSE 81; RESP 18; TEMP 98.2
== END 2019-12-14 00:24 | disposition home or self-care (01) ==
LOC: EC 22:27
DX: J20.9 Acute bronchitis, unspecified (principal); F31.9 Bipolar disorder, unspecified; F25.9 Schizoaffective disorder, unspecified; Z79.899 Other long term (current) drug therapy; Z20.828 Contact with and (suspected) exposure to other viral communicable diseases
CPT/HCPCS: 94640; 71045; 99283; 96372; U0003; J2930

== ENCOUNTER 2020-05-22 19:36 | Emergency (ER) | payer MEDICARE, OTHER ==
--- NOTE | 2020-05-22 21:31 | XR ---
EXAMINATION TYPE: XR chest 2V DATE OF EXAM: 05/22/2020 COMPARISON: 12/13/2019 HISTORY: Cough TECHNIQUE: 2 views FINDINGS: There is some minimal linear density left lung base. There is no heart failure. Heart size is normal. Bony thorax is intact. There is slight blunting of the costophrenic angles. IMPRESSION: There is minimal subsegmental atelectasis and pleural reaction at the lung bases which is a change compared to old exam. Normal heart.
[2020-05-22 22:59] VITALS: RESP 20
[2020-05-22] MEDS ORDERED: ACETAMINOPHEN TAB 325 MG TAB PO STA (22:59)
[2020-05-22] MEDS ORDERED: IBUPROFEN 600 MG TAB PO STA (22:59)
--- NOTE | 2020-05-22 23:10 | ED ---
Fever HPI - General Chief Complaint: Fever Stated Complaint: Fever,cough Time Seen by Provider: 05/22/20 22:52 Source: patient, RN notes reviewed Mode of arrival: ambulatory Limitations: no limitations - History of Present Illness Initial Comments: Patient is a 40-year-old male that presents to emergency room complaining of fever and Covid symptoms. He notes that he tested positive for Covid today in the emergency room in his had symptoms for 2 days. He has a cough and a fever. He was in no apparent distress or pain while sitting in bed during exam and interview. He denied any chest pain headache nausea vomiting diarrhea constipation fatigue weakness numbness tingling. - Related Data Home Medications Medication Instructions Recorded Confirmed ARIPiprazole [Abilify] 30 mg PO DAILY 11/15/18 11/15/18 Atorvastatin [Lipitor] 40 mg PO DAILY 11/15/18 11/15/18 Divalproex Sodium [Depakote] 1,000 mg PO BID 11/15/18 11/15/18 Naproxen 500 mg PO BID PRN 11/15/18 11/15/18 Previous Rx's Medication Instructions Recorded OLANZapine [ZyPREXA] 10 mg PO BID #60 tab 04/01/16 guaiFENesin-Coden 100-10MG/5ML 10 ml PO Q6H PRN 3 Days #120 ml 12/14/19 [Robitussin AC] methylPREDNISolone [Medrol Dose 4 mg PO DIRECTED #1 pack 12/14/19 Pack] Allergies Allergy/AdvReac Type Severity Reaction Status Date / Time clarithromycin [From Biaxin] Allergy Rash/Hives Verified 05/22/20 21:16 quetiapine fumarate Allergy Unknown Verified 05/22/20 21:16 [From Seroquel] Review of Systems ROS Statement: Those systems with pertinent positive or pertinent negative responses have been documented in the HPI. ROS Other: All systems not noted in ROS Statement are negative. Past Medical History Past Medical History: No Reported History Additional Past Medical History / Comment(s): left inguinal hernia History of Any Multi-Drug Resistant Organisms: None Reported Past Surgical History: Hernia Repair Past Psychological History: Bipolar, Depression, Schizoaffective Disorder, Schizophrenia Smoking Status: Former smoker Past Alcohol Use History: None Reported Past Drug Use History: Cocaine, Marijuana General Exam Limitations: no limitations General appearance: alert, in no apparent distress, obese Head exam: Present: atraumatic, normocephalic, normal inspection Eye exam: Present: normal appearance, PERRL, EOMI. Absent: scleral icterus, conjunctival injection, periorbital swelling ENT exam: Present: normal exam, mucous membranes moist Neck exam: Present: normal inspection. Absent: tenderness, meningismus, lymphadenopathy Respiratory exam: Present: normal lung sounds bilaterally, decreased breath sounds (And left lower lobe.). Absent: respiratory distress, wheezes, rales, rhonchi, stridor Cardiovascular Exam: Present: regular rate, normal rhythm, normal heart sounds. Absent: systolic murmur, diastolic murmur, rubs, gallop, clicks GI/Abdominal exam: Present: soft, normal bowel sounds. Absent: distended, tenderness, guarding, rebound, rigid Extremities exam: Present: normal inspection, full ROM, normal capillary refill. Absent: tenderness, pedal edema, joint swelling, calf tenderness Neurological exam: Present: alert, oriented X3, CN II-XII intact Psychiatric exam: Present: normal affect, normal mood Skin exam: Present: warm, dry, intact, normal color. Absent: rash Course Vital Signs 05/22/20 05/22/20 21:13 22:58 Temperature 103.0 F H 103.1 F H Pulse Rate 109 H 120 H Respiratory 22 20 Rate Blood Pressure 145/87 128/83 O2 Sat by Pulse 100 97 Oximetry Medical Decision Making - Medical Decision Making 40-year-old male that tested positive for Covid complaining of fever and symptoms for 2 days. 650 mg of Tylenol and 600 mg of Motrin ordered. Patient educated on monoclonal antibody therapy, and informed that he does meet the criteria. He did agree to undergo treatment. Case discussed with Dr. Gary, patient can discharge home after therapy. - Lab Data Lab Results 05/22/20 Range/Units 21:17 Coronavirus (PCR) Detected A (Not Detectd) - Radiology Data Radiology results: report reviewed, image reviewed Chest x-ray: There is minimal subsegmental atelectasis and pleural reaction at the lung bases which is a change compared to old exam. Normal heart. Disposition Clinical Impression: COVID-19, Cough, Fever Disposition: HOME SELF-CARE Condition: Stable Instructions (If sedation given, give patient instructions): Fever in Adults (ED) Additional Instructions: Please return to the Emergency Department if symptoms worsen or any other concerns. Per CDC guidelines quarantine for 10-14 days from onset of symptoms. Follow-up with primary care soon as possible. Continue take [id number] anti-inflammatories for fever and muscle aches and pains. Increase oral fluid intake, rest. Is patient prescribed a controlled substance at d/c from ED?: No Referrals: Edy Michelle MD [Primary Care Provider] - 1-2 days Time of Disposition: 01:30
[2020-05-22] MEDS ORDERED: SODIUM CHLORIDE 0.9% 1,000 ML IV ONE (23:13)
[2020-05-23] MEDS ORDERED: BAMLANIVIMAB (EUA) 700 MG, ETESEVIMAB (EUA) 1,400 MG in SODIUM CHLORIDE 0.9% 50 ML IVPB ONE (00:30)
[2020-05-23 01:36] VITALS: BP 116/58; PULSE 90; TEMP 99
== END 2020-05-23 01:36 | disposition home or self-care (01) ==
LOC: EC 19:36
DX: U07.1 COVID-19 (principal); F32.9 Major depressive disorder, single episode, unspecified; F12.90 Cannabis use, unspecified, uncomplicated; F14.90 Cocaine use, unspecified, uncomplicated; Z87.891 Personal history of nicotine dependence; Z79.52 Long term (current) use of systemic steroids
CPT/HCPCS: 87635; 71046; 99283; 96365; 96361; Q0245

== ENCOUNTER 2020-06-12 21:00 | Emergency (ER) | payer MEDICARE, OTHER ==
[2020-06-12 21:24] VITALS: RESP 18
--- NOTE | 2020-06-12 22:20 | ED ---
GI Bleed HPI - General Chief complaint: GI Bleed Stated complaint: Blood in stool Time Seen by Provider: 06/12/20 21:29 Source: patient Mode of arrival: ambulatory Limitations: no limitations - History of Present Illness Initial comments: 40-year-old male patient presents to the emergency department today for evaluation of bloody stool. Patient states the last 4 days and ever he has a bowel movement he notices blood in the toilet around his stool. States his whole appears dark brown in color. Denies any abdominal pain. Denies dizziness or weakness. Denies use of anticoagulant or antiplatelet medications. Denies history of GI bleed. Patient states he believes he has been told he had hemorrhoids in the past. Denies any rectal pain. Patient denies any recent rash, fever, chills, cough, shortness of breath, chest pain, nausea, vomiting, diarrhea, constipation, back pain, numbness, tingling, dizziness, weakness, hematuria, dysuria, urinary urgency, urinary frequency, headache, visual changes, or any other complaints. - Related Data Home Medications Medication Instructions Recorded Confirmed ARIPiprazole [Abilify] 30 mg PO DAILY 11/15/18 11/15/18 Atorvastatin [Lipitor] 40 mg PO DAILY 11/15/18 11/15/18 Divalproex Sodium [Depakote] 1,000 mg PO BID 11/15/18 11/15/18 Naproxen 500 mg PO BID PRN 11/15/18 11/15/18 Previous Rx's Medication Instructions Recorded OLANZapine [ZyPREXA] 10 mg PO BID #60 tab 04/01/16 guaiFENesin-Coden 100-10MG/5ML 10 ml PO Q6H PRN 3 Days #120 ml 12/14/19 [Robitussin AC] methylPREDNISolone [Medrol Dose 4 mg PO DIRECTED #1 pack 12/14/19 Pack] Phenylephrine HCl/[place] 1 each RC DAILY #10 supp.rect 06/12/20 [Preparation H Suppository] Allergies Allergy/AdvReac Type Severity Reaction Status Date / Time clarithromycin [From Biaxin] Allergy Rash/Hives Verified 06/12/20 21:24 quetiapine fumarate Allergy Unknown Verified 06/12/20 21:24 [From Seroquel] Review of Systems ROS Statement: Those systems with pertinent positive or pertinent negative responses have been documented in the HPI. ROS Other: All systems not noted in ROS Statement are negative. Past Medical History Past Medical History: No Reported History Additional Past Medical History / Comment(s): left inguinal hernia History of Any Multi-Drug Resistant Organisms: None Reported Past Surgical History: Hernia Repair Past Psychological History: Bipolar, Depression, Schizoaffective Disorder, Schizophrenia Smoking Status: Former smoker Past Alcohol Use History: None Reported Past Drug Use History: Cocaine, Marijuana General Exam Limitations: no limitations General appearance: alert, in no apparent distress, other (This is a well- developed, well-nourished adult male patient in no acute distress. Vital signs upon presentation are temperature 97.7F, pulse 92, respirations 18, blood pressure 135/93, pulse ox 98% on room air.) Eye exam: Present: normal appearance, PERRL, EOMI. Absent: scleral icterus, conjunctival injection, periorbital swelling ENT exam: Present: normal exam, normal oropharynx, mucous membranes moist Respiratory exam: Present: normal lung sounds bilaterally. Absent: respiratory distress, wheezes, rales, rhonchi, stridor Cardiovascular Exam: Present: regular rate, normal rhythm, normal heart sounds. Absent: systolic murmur, diastolic murmur, rubs, gallop, clicks GI/Abdominal exam: Present: soft, normal bowel sounds. Absent: distended, tenderness, guarding, rebound, rigid Rectal exam: Present: heme (-) stool, hemorrhoids. Absent: tenderness Neurological exam: Present: alert, oriented X3, CN II-XII intact Psychiatric exam: Present: normal affect, normal mood Skin exam: Present: warm, dry, intact, normal color. Absent: rash Course Vital Signs 06/12/20 06/12/20 21:20 22:46 Temperature 97.7 F 97.8 F Pulse Rate 92 82 Respiratory 18 18 Rate Blood Pressure 135/93 144/80 O2 Sat by Pulse 98 98 Oximetry Medical Decision Making - Medical Decision Making 40-year-old male patient presents to the emergency department today for evaluation of blood in his stool. Physical examination did reveal soft nontender abdomen. Did perform a rectal exam which showed a small hemorrhoid at 6:00. No active bleeding. Rectal exam was unremarkable. Stool was negative for occult blood. Blood pressure within normal range. Denies dizziness or weakness. I do believe bleeding is from hemorrhoids. We'll give him suppository Preparation H. Discharge follow up with GI specialty for further evaluation. Follow-up with his primary care physician for recheck in 1-2 days. Return parameters were discussed in detail. He verbalizes understanding and agrees this plan. Case discussed with my attending Dr. Sauceda. - Lab Data Lab Results 06/12/20 Range/Units 21:59 Stool Occult Blood Negative (Negative) Disposition Clinical Impression: Hemorrhoid Disposition: HOME SELF-CARE Condition: Good Instructions (If sedation given, give patient instructions): Hemorrhoids (ED) Additional Instructions: Take medications as directed. Follow-up with GI specialist for further evaluation as as possible. Return to the emergency department for any new, worsening, or concerning symptoms. Prescriptions: Phenylephrine HCl/[place] [Preparation H Suppository] 1 each RC DAILY #10 supp.rect Is patient prescribed a controlled substance at d/c from ED?: No Referrals: Edy Michelle MD [Primary Care Provider] - 1-2 days Avila Tinoco MD [STAFF PHYSICIAN] - 1-2 days Time of Disposition: 22:19
[2020-06-12 22:48] VITALS: BP 144/80; PULSE 82; TEMP 97.8
== END 2020-06-12 22:48 | disposition home or self-care (01) ==
LOC: EC 21:00
DX: K64.9 Unspecified hemorrhoids (principal); F25.9 Schizoaffective disorder, unspecified; F31.9 Bipolar disorder, unspecified; F12.90 Cannabis use, unspecified, uncomplicated; Z87.891 Personal history of nicotine dependence
CPT/HCPCS: 36415; 82272; 99283

== ENCOUNTER → 2020-12-03 | Outpatient (CLI) | payer MEDICARE, OTHER ==
[2020-12-03 22:40] LABS: Basophils # (A) 0.03 X 10*3/uL (0.00-0.10); Basophils % (A) 0.4 %; Eosinophils % (A) 2.9 %; HCT 39.8 % (39.6-50.0); HGB 13.5 g/dL (13.0-17.0); Lymphocytes # (A) 2.11 X 10*3/uL (0.90-5.00); Lymphocytes % (A) 30.3 %; MCH 28.5 pg (27.0-32.0); MCHC 33.9 g/dL (32.0-37.0); Mean Platelet Volume 10.3 fL (9.5-12.2); Monocytes # (A) 0.46 X 10*3/uL (0.20-1.00); Monocytes % (A) 6.6 %; Neutrophils # (A) 4.15 X 10*3/uL (1.80-7.70); Neutrophils % (A) 59.5 %; Platelet Count 239 X 10*3/uL (140-440); RBC 4.74 X 10*6/uL (4.40-5.60); RDW 13.2 % (11.5-14.5); WBC 6.97 X 10*3/uL (4.50-10.00)
[2020-12-04 14:55] LABS: ALT 30 U/L (10-49); AST 18 U/L (14-35); African American GFR (CKD) 128.9 (60.0-200.0); Albumin 4.2 g/dL (3.8-4.9); Albumin/Globulin Ratio 1.89 (1.60-3.17); Alkaline Phosphatase 106 U/L (41-126); BUN/Creat Ratio 11.79 Ratio (12.00-20.00); Bilirubin, Conjugated <0.20 mg/dL (0.20-0.40); Blood Urea Nitrogen 9.4 mg/dL (9.0-27.0); Calcium 9.1 mg/dL (8.7-10.3); Carbon Dioxide 22.3 mmol/L (21.6-31.8); Chloride 108 mmol/L (96-109); Chol/HDL Ratio 4.93 Ratio; Globulin 2.2 g/dL (1.6-3.3); Glucose 109 mg/dL (70-110); LDL Cholesterol,Calculated 99.1 mg/dL (0.0-131.0); Non-African American GFR(CKD) 111.3 (60.0-200.0); Sodium 144 mmol/L (135-145); Total Protein 6.4 g/dL (6.2-8.2)
[2020-12-05 02:04] LABS: Valproic Acid (Depakene) 63.4 ug/mL (50.0-100.0)
== END | disposition home or self-care (01) ==
LOC: LABWHC1 16:07
PROVIDERS: ATTEND Psychiatry & Neurology Psychiatry
DX: Z79.899 Other long term (current) drug therapy (principal)
CPT/HCPCS: 36415; 80053; 80061; 80164; 82248; 82306; 83036; 84146; 84439; 84443; 85025

== ENCOUNTER 2021-03-10 14:37 | Emergency (ER) | payer MEDICARE, OTHER ==
[2021-03-10 16:20] VITALS: BP 119/83; PULSE 98; RESP 20; TEMP 99.1
--- NOTE | 2021-03-10 16:52 | XR ---
EXAMINATION TYPE: XR chest 2V DATE OF EXAM: 03/10/2021 COMPARISON: 05/22/2020 HISTORY: Cough and fever TECHNIQUE: 2 views FINDINGS: There is mild blunting of the costophrenic angles. There is no heart failure. There are no hilar masses. Bony thorax is intact. IMPRESSION: Small pleural effusions without change compared to old exam. No obvious heart failure.
--- NOTE | 2021-03-10 17:21 | ED ---
URI HPI - General Chief Complaint: Upper Respiratory Infection Stated Complaint: laryngitis, cough Time Seen by Provider: 03/10/21 16:21 Source: patient, RN notes reviewed Mode of arrival: ambulatory Limitations: no limitations - History of Present Illness Initial Comments: This is a pleasant 41-year-old male who has been ill for several days. He state s she's had a dry cough and now starting to lose his voice. Patient is fully vaccinated and boosted against COVID-19. However he only received a booster shot about one week ago. Patient denies any chest pain. No productive cough. No fever. Minimal body aches. No abdominal pain. No nausea or vomiting. No changes in balance or urination. No paresthesias. No headache. No difficulty swallowing. MD Complaint: cough, nasal congestion - Related Data Home Medications Medication Instructions Recorded Confirmed ARIPiprazole [Abilify] 30 mg PO DAILY 11/15/18 11/15/18 Atorvastatin [Lipitor] 40 mg PO DAILY 11/15/18 11/15/18 Divalproex Sodium [Depakote] 1,000 mg PO BID 11/15/18 11/15/18 Naproxen 500 mg PO BID PRN 11/15/18 11/15/18 Previous Rx's Medication Instructions Recorded OLANZapine [ZyPREXA] 10 mg PO BID #60 tab 04/01/16 guaiFENesin-Coden 100-10MG/5ML 10 ml PO Q6H PRN 3 Days #120 ml 12/14/19 [Robitussin AC] methylPREDNISolone [Medrol Dose 4 mg PO DIRECTED #1 pack 12/14/19 Pack] Phenylephrine HCl/[place] Butter 1 each RC DAILY #10 supp.rect 06/12/20 [Preparation H Suppository] methylPREDNISolone [Medrol] 4 mg PO DIRECTED #1 each 03/10/21 Allergies Allergy/AdvReac Type Severity Reaction Status Date / Time clarithromycin [From Biaxin] Allergy Rash/Hives Verified 03/10/21 16:17 quetiapine fumarate Allergy Unknown Verified 03/10/21 16:17 [From Seroquel] Review of Systems ROS Statement: Those systems with pertinent positive or pertinent negative responses have been documented in the HPI. ROS Other: All systems not noted in ROS Statement are negative. Past Medical History Past Medical History: No Reported History Additional Past Medical History / Comment(s): left inguinal hernia History of Any Multi-Drug Resistant Organisms: None Reported Past Surgical History: Hernia Repair Past Psychological History: Bipolar, Depression, Schizoaffective Disorder, Schizophrenia Smoking Status: Former smoker Past Alcohol Use History: None Reported Past Drug Use History: None Reported, Cocaine, Marijuana General Exam - General Exam Comments Initial Comments: Patient does not appear to be ill or toxic. Vital signs reviewed, patient appears to be adequately hydrated. Limitations: no limitations General appearance: alert, in no apparent distress Head exam: Present: atraumatic, normocephalic, normal inspection Eye exam: Present: normal appearance, PERRL, EOMI. Absent: scleral icterus, conjunctival injection, periorbital swelling ENT exam: Present: normal exam, normal oropharynx, mucous membranes dry, mucous membranes moist, TM's normal bilaterally, normal external ear exam Neck exam: Present: normal inspection, full ROM. Absent: tenderness, meningismus, lymphadenopathy Respiratory exam: Present: normal lung sounds bilaterally. Absent: respiratory distress, wheezes, rales, rhonchi, stridor, chest wall tenderness, accessory muscle use Cardiovascular Exam: Present: regular rate, normal rhythm, normal heart sounds. Absent: systolic murmur, diastolic murmur, rubs, gallop, clicks GI/Abdominal exam: Present: soft, normal bowel sounds. Absent: distended, tenderness, guarding, rebound, rigid Extremities exam: Present: normal inspection, full ROM, normal capillary refill. Absent: tenderness, pedal edema, joint swelling, calf tenderness Back exam: Present: normal inspection Neurological exam: Present: alert, oriented X3, CN II-XII intact Psychiatric exam: Present: normal affect, normal mood Skin exam: Present: warm, dry, intact, normal color. Absent: rash Course Vital Signs 03/10/21 16:18 Temperature 99.1 F Pulse Rate 98 Respiratory 20 Rate Blood Pressure 119/83 O2 Sat by Pulse 97 Oximetry Medical Decision Making - Medical Decision Making Patient symptomology consistent with viral upper respiratory infection. Differential diagnosis would include COVID-19, influenza, other viral etiologies, patient does have a bit of a hoarse voice, laryngitis caused by parainfluenza virus is possible. Patient has been on azithromycin and continues to have symptoms. Patient's been ill for about 10 days. We did discuss the possibility of false negative COVID-19 test. I instructed the patient to finish the azithromycin. I did prescribe a Medrol Dosepak. Patient to follow-up with his regular physician. Patient reevaluated prior to discharge, vital signs stable, patient afebrile. All findings discussed. All questions answered. Follow-up with your regular physician as directed. Return to the ER immediately if any symptoms worsen, new symptoms arise, or any other problems develop. - Lab Data Lab Results 03/10/21 03/10/21 Range/Units 16:23 16:23 Coronavirus (PCR) Not Detected (Not Detectd) Influenza Type A RNA Not Detected (Not Detectd) Influenza Type B (PCR) Not Detected (Not Detectd) - Radiology Data Radiology results: image reviewed Disposition Clinical Impression: Viral bronchitis, Laryngitis Disposition: HOME SELF-CARE Condition: Good Instructions (If sedation given, give patient instructions): Acute Bronchitis (ED), Laryngitis (ED) Additional Instructions: Follow-up with your regular physician as directed. Return to the ER immediately if any symptoms worsen, new symptoms arise, or any other problems develop. Prescriptions: methylPREDNISolone [Medrol] 4 mg PO DIRECTED #1 each Is patient prescribed a controlled substance at d/c from ED?: No Referrals: Edy Michelle MD [Primary Care Provider] - 1-2 days Time of Disposition: 17:17
== END 2021-03-10 17:54 | disposition home or self-care (01) ==
LOC: EC 14:37
DX: J20.8 Acute bronchitis due to other specified organisms (principal); J04.0 Acute laryngitis; F31.9 Bipolar disorder, unspecified; F32.A Depression, unspecified; F25.9 Schizoaffective disorder, unspecified; F12.90 Cannabis use, unspecified, uncomplicated; Z87.891 Personal history of nicotine dependence
CPT/HCPCS: 71046; 87502; 87635; 99283

== ENCOUNTER 2022-03-17 08:51 | Day surgery (SDC) | payer MEDICARE, OTHER ==
[2022-03-17 09:14] VITALS: TEMP 97
[2022-03-17] MEDS ORDERED: LACTATED RINGERS 1,000 ML IV SCH (09:18)
[2022-03-17] MEDS ORDERED: PROPOFOL 10 MG/ML 20 ML VIAL IV ONE (10:01)
--- NOTE | 2022-03-17 10:12 | P.PCN ---
Date of Procedure: 03/17/22 Procedure(s) Performed: BRIEF HISTORY: Patient is a 42-year-old pleasant white male scheduled for an elective colonoscopy as a part of screening for colon cancer and family history of colon cancer. His grandfather was diagnosed with colon cancer at age 55. PROCEDURE PERFORMED: Colonoscopy. PREOPERATIVE DIAGNOSIS: Screening for colon cancer and family history of colon cancer. IV sedation per Anesthesia. PROCEDURE: After informed consent was obtained, the patient, was brought into the endoscopy unit. IV sedation was administered by Anesthesia under continuous monitoring. Digital rectal examination was normal. Initially the Olympus CF-160 flexible video colonoscope was then inserted in the rectum, gradually advanced into the cecum without any difficulty. Careful examination was performed as the scope was gradually being withdrawn. Ileocecal valve and the appendiceal orifice were visualized and appeared normal. Prep was fair. Mucosa of the cecum, ascending colon, transverse colon, descending colon, sigmoid colon, and rectum appeared normal. Retroflexion was performed in the rectum and no lesions were seen. The patient tolerated the procedure well. IMPRESSION: Normal-appearing colon from rectum to cecum with no evidence of colorectal neoplasia . RECOMMENDATIONS: Findings of this examination were discussed with the patient as well as his family. He was advised to have a repeat screening colonoscopy in 10 years.
[2022-03-17 10:23] VITALS: RESP 16
[2022-03-17 10:32] VITALS: BP 116/77; PULSE 78
== END 2022-03-17 10:48 | disposition home or self-care (01) ==
LOC: ORWHC2ENDO 08:51
PROVIDERS: ATTEND Internal Medicine Gastroenterology
DX: Z12.11 Encounter for screening for malignant neoplasm of colon (principal); E78.5 Hyperlipidemia, unspecified; F31.9 Bipolar disorder, unspecified; F20.9 Schizophrenia, unspecified; F10.959 Alcohol use, unspecified with alcohol-induced psychotic disorder, unspecified; Z79.899 Other long term (current) drug therapy; Z88.8 Allergy status to other drugs, medicaments and biological substances; Z80.0 Family history of malignant neoplasm of digestive organs
CPT/HCPCS: G0105; J2704

== ENCOUNTER → 2023-09-10 | Outpatient (CLI) | payer MEDICARE, OTHER ==
[2023-09-10 20:25] LABS: Basophils # (A) 0.07 X 10*3/uL (0.00-0.10); Basophils % (A) 0.8 %; Eosinophils # (A) 0.26 X 10*3/uL (0.04-0.35); Eosinophils % (A) 3.1 %; HCT 43.7 % (39.6-50.0); Lymphocytes # (A) 1.78 X 10*3/uL (0.90-5.00); Lymphocytes % (A) 21.4 %; MCH 28.2 pg (27.0-32.0); MCHC 34.3 g/dL (32.0-37.0); MCV 82.3 FL (80.0-97.0); Mean Platelet Volume 10.1 FL (9.5-12.2); Monocytes # (A) 0.51 X 10*3/uL (0.20-1.00); Monocytes % (A) 6.1 %; NRBC Per 100 WBC 0 X 10*3/uL (0.00-0.01); Neutrophils # (A) 5.65 X 10*3/uL (1.80-7.70); Neutrophils % (A) 68.1 %; Platelet Count 301 X 10*3/uL (140-440); RBC 5.31 X 10*6/uL (4.40-5.60); RDW 12.6 % (11.5-14.5); WBC 8.31 X 10*3/uL (4.50-10.00)
[2023-09-10 21:12] LABS: Chol/HDL Ratio 6.57 Ratio
[2023-09-10 21:13] LABS: ALT 46 U/L (10-49); AST 30 U/L (14-35); Albumin 4.5 g/dL (3.8-4.9); Albumin/Globulin Ratio 1.96 Ratio (1.60-3.17); Alkaline Phosphatase 114 U/L (41-126); BUN/Creat Ratio 15.12 Ratio (12.00-20.00); Blood Urea Nitrogen 12.1 mg/dL (9.0-27.0); Calcium 9.2 mg/dL (8.7-10.3); Carbon Dioxide 23.1 mmol/L (21.6-31.8); Chloride 105 mmol/L (96-109); Globulin 2.3 g/dL (1.6-3.3); Glucose 105 mg/dL (70-110); Potassium 4.5 mmol/L (3.5-5.5); Sodium 140 mmol/L (135-145); Total Bilirubin 0.2 mg/dL (0.3-1.2); Total Protein 6.8 g/dL (6.2-8.2)
[2023-09-10 21:41] LABS: Microalbumin Creatinine Ratio <10 mg/g Cr (0-30)
[2023-09-10 22:11] LABS: HIV 2 AB Non-Reactive (Non-Reactive); HIV AB P24 Non-Reactive (Non-Reactive); HIV P24 AG Non-Reactive (Non-Reactive)
== END | disposition home or self-care (01) ==
LOC: LABWHC1 14:00
PROVIDERS: ATTEND Registered Nurse
DX: Z13.1 Encounter for screening for diabetes mellitus (principal); Z11.4 Encounter for screening for human immunodeficiency virus [HIV]; Z13.0 Encounter for screening for diseases of the blood and blood-forming organs and certain disorders involving the immune mechanism; Z11.59 Encounter for screening for other viral diseases; Z13.228 Encounter for screening for other metabolic disorders
CPT/HCPCS: 36415; 80053; 80061; 82043; 82570; 83036; 83721; 84443; 85025; 86803; 87390

== ENCOUNTER 2024-06-24 19:15 | Emergency (ER) | payer MEDICARE, OTHER ==
--- NOTE | 2024-06-24 19:51 | XR ---
EXAMINATION TYPE: XR chest 2V DATE OF EXAM: 06/24/2024 7:47 PM COMPARISON: Chest radiographs from 03/10/2019. CLINICAL INDICATION: Male, 44 years old with history of Cough; H TECHNIQUE: XR chest 2V Frontal and lateral views of the chest. FINDINGS: Lungs/Pleura: There is no evidence of pleural effusion, focal consolidation, or pneumothorax. Pulmonary vascularity: Unremarkable. Heart/mediastinum: Cardiomediastinal silhouette is unremarkable. Musculoskeletal: No acute osseous pathology. Other findings: None IMPRESSION: No acute cardiopulmonary disease/process. [facility], , 06/24/2024 7:48 PM
[2024-06-24] MEDS: KETOROLAC 15 MG/ML 1 ML VIAL IM STA (20:19)
[2024-06-24] MEDS: methylPREDNISolone SOD SUCCI 125 MG/2 ML VIAL IM ONE (20:19)
[2024-06-24 20:25] LABS: Influenza A Not Detected (Not Detectd); Influenza B Not Detected (Not Detectd); RSV Not Detected (Not Detectd)
--- NOTE | 2024-06-24 21:04 | ED ---
URI HPI - General Chief Complaint: Upper Respiratory Infection Stated Complaint: Cough/Headache Time Seen by Provider: 06/24/24 19:28 Source: patient, RN notes reviewed Mode of arrival: ambulatory Limitations: no limitations - History of Present Illness Initial Comments: This is a 44-year-old male with history including asthma and COPD presenting for sick symptoms x 1 month. Patient endorses dry cough and frontal headache (8/10). Endorses use of Claritin with minimal relief. Denies fever, chills, neck stiffness, fatigue, dizziness, chest pain, dyspnea, N/V/D, hemoptysis. MD Complaint: cough Onset/Timin -: month(s) Severity scale (1-10): 8 Quality: aching Consistency: constant Associated Symptoms: headache - Related Data Home Medications Medication Instructions Recorded Confirmed ARIPiprazole [Abilify] 30 mg PO DAILY 11/15/18 03/17/22 Atorvastatin [Lipitor] 40 mg PO DAILY 11/15/18 03/17/22 Divalproex Sodium [Depakote] 500 mg PO HS 11/15/18 03/17/22 Naproxen 500 mg PO BID PRN 11/15/18 03/17/22 Budesonide/Formoterol Fumarate 2 puff INHALATION BID 03/12/22 03/17/22 [Symbicort 160-4.5 Mcg Inhaler] Ibuprofen 800 mg PO DIRECTED PRN 03/12/22 03/17/22 Divalproex ER [Depakote ER] 250 mg PO BID 06/24/24 06/24/24 Previous Rx's Medication Instructions Recorded OLANZapine [ZyPREXA] 10 mg PO BID #60 tab 04/01/16 Benzonatate [Tessalon Perle] 200 mg PO Q8H PRN #15 capsule 06/24/24 predniSONE 50 mg PO DAILY #5 tab 06/24/24 Allergies Allergy/AdvReac Type Severity Reaction Status Date / Time clarithromycin [From Biaxin] Allergy Rash/Hives Verified 06/24/24 19:18 quetiapine fumarate Allergy Unknown Verified 06/24/24 19:18 [From Seroquel] Review of Systems ROS Statement: Those systems with pertinent positive or pertinent negative responses have been documented in the HPI. ROS Other: All systems not noted in ROS Statement are negative. Past Medical History Past Medical History: Asthma, COPD, Hyperlipidemia Additional Past Medical History / Comment(s): parkinsons, hemorrhoids, occasional heartburn. History of Any Multi-Drug Resistant Organisms: None Reported Past Surgical History: Hernia Repair Additional Past Surgical History / Comment(s): lt inguinal hernia repair Past Anesthesia/Blood Transfusion Reactions: No Reported Reaction Additional Past Anesthesia/Blood Transfusion Reaction / Comment(s): no blood transfusions Past Psychological History: Bipolar, Depression, Schizoaffective Disorder, Schizophrenia Smoking Status: Former smoker Past Alcohol Use History: None Reported Past Drug Use History: None Reported - Past Family History Mother Additional Family Medical History / Comment(s): Father History Unknown: Yes General Exam Limitations: no limitations General appearance: alert, in no apparent distress Head exam: Present: atraumatic, normocephalic, normal inspection Eye exam: Present: normal appearance, PERRL, EOMI. Absent: scleral icterus, conjunctival injection, periorbital swelling ENT exam: Present: normal exam, mucous membranes moist Neck exam: Present: normal inspection. Absent: tenderness, meningismus, lymphadenopathy Respiratory exam: Present: normal lung sounds bilaterally. Absent: respiratory distress, wheezes, rales, rhonchi, stridor, accessory muscle use, decreased breath sounds, prolonged expiratory Cardiovascular Exam: Present: regular rate, normal rhythm, normal heart sounds. Absent: systolic murmur, diastolic murmur, rubs, gallop, clicks GI/Abdominal exam: Present: soft, normal bowel sounds. Absent: distended, tenderness, guarding, rebound, rigid Extremities exam: Present: normal inspection, full ROM, normal capillary refill. Absent: tenderness, pedal edema, joint swelling, calf tenderness Back exam: Present: normal inspection Neurological exam: Present: alert, oriented X3, CN II-XII intact Psychiatric exam: Present: normal affect, normal mood Skin exam: Present: warm, dry, intact, normal color. Absent: rash Course Vital Signs 06/24/24 06/24/24 19:16 21:10 Temperature 97.5 F L 97.7 F Pulse Rate 92 75 Respiratory 18 19 Rate Blood Pressure 134/83 133/79 O2 Sat by Pulse 98 99 Oximetry Medical Decision Making - Medical Decision Making Was pt. sent in by a medical professional or institution (, PA, VOICE AND DATA TECHNICIAN, urgent care, hospital, or retirement...) When possible be specific @ -No Did you speak to anyone other than the patient for history (EMS, parent, family, police, friend...)? What history was obtained from this source @ -No Did you review nursing and triage notes (agree or disagree)? Why? @ -I reviewed and agree with nursing and triage notes Were old charts reviewed (outside hosp., previous admission, EMS record, old EKG, old radiological studies, urgent care reports/EKG's, retirement records)? Report findings @ -No old charts were reviewed Differential Diagnosis (chest pain, altered mental status, abdominal pain women, abdominal pain men, vaginal bleeding, weakness, fever, dyspnea, syncope, headache, dizziness, GI bleed, back pain, seizure, CVA, palpatations, mental health, musculoskeletal)? @ -Differential Headache: Migraine, tension, cluster, carbon monoxide, central venous thrombosis, pension karma temporal arteritis, acute closure glaucoma, intercranial hemorrhage, mastoiditis, sinusitis, head injury, this is not meant to be an all-inclusive list. EKG interpreted by me (3pts min.). @ -Done X-rays interpreted by me (1pt min.). @ -CXR shows no acute cardiopulmonary process CT interpreted by me (1pt min.). @ -None done U/S interpreted by me (1pt. min.). @ -None done What testing was considered but not performed or refused? (CT, X-rays, U/S, labs)? Why? @ -None What meds were considered but not given or refused? Why? @ -None Did you discuss the management of the patient with other professionals (professionals i.e. , PA, VOICE AND DATA TECHNICIAN, lab, RT, psych nurse, outreach and education social worker, livestock farmers, teacher, ethics officer, housing case manager)? Give summary @ -No Was smoking cessation discussed for >3mins.? @ -No Was critical care preformed (if so, how long)? @ -No Were there social determinants of health that impacted care today? How? (Homelessness, low income, unemployed, alcoholism, drug addiction, transportation, low edu. Level, literacy, decrease access to med. care, halfway, rehab)? @ -No Was there de-escalation of care discussed even if they declined (Discuss DNR or withdrawal of care, Hospice)? DNR status @ -No What co-morbidities impacted this encounter? (DM, HTN, Smoking, COPD, CAD, Cancer, CVA, ARF, Chemo, Hep., AIDS, mental health diagnosis, sleep apnea, morbid obesity)? @ -None Was patient admitted / discharged? Hospital course, mention meds given and route, prescriptions, significant lab abnormalities, going to OR and other pertinent info. @ -Cepheid test negative. CXR shows no acute cardiopulmonary process. Patient provided IM Toradol and Solu-Medrol with relief noted by patient. Tessalon Perles and prednisone sent to patient's pharmacy. Advised alternate Tylenol/Motrin every 4 hours for headache. Honey and warm fluids for cough. Follow-up with PCP for any ongoing or worsening symptoms. Discussed patient with Dr. Caro. Undiagnosed new problem with uncertain prognosis? @ -No Drug Therapy requiring intensive monitoring for toxicity (Heparin, Nitro, Insulin, Cardizem)? @ -No Were any procedures done? @ -No Diagnosis/symptom? @ -URI Acute, or Chronic, or Acute on Chronic? @ -Acute Uncomplicated (without systemic symptoms) or Complicated (systemic symptoms)? @ -Uncomplicated Side effects of treatment? @ -No Exacerbation, Progression, or Severe Exacerbation? @ -No Poses a threat to life or bodily function? How? (Chest pain, [place], NC, pneumonia, PE, COPD, DKA, ARF, appy, cholecystitis, CVA, Diverticulitis, Homicidal, Suicidal, threat to staff... and all critical care pts) @ -No - Lab Data Lab Results 06/24/24 Range/Units 19:33 Influenza Type A (PCR) Not Detected (Not Detectd) Influenza Type B (PCR) Not Detected (Not Detectd) RSV (PCR) Not Detected (Not Detectd) SARS-CoV-2 (PCR) Not Detected (Not Detectd) Disposition Clinical Impression: Acute upper respiratory infection Disposition: HOME SELF-CARE Condition: Good Instructions (If sedation given, give patient instructions): Upper Respiratory Infection (ED) Additional Instructions: Honey, warm fluids and humidifier for cough. Tylenol every 4 hours as needed for headache. Follow-up with primary care for any ongoing or worsening symptoms. Prescriptions: predniSONE 50 mg PO DAILY #5 tab Benzonatate [Tessalon Perle] 200 mg PO Q8H PRN #15 capsule PRN Reason: Cough Is patient prescribed a controlled substance at d/c from ED?: No Referrals: Cynthia Noble MD [Primary Care Provider] - 1-2 days Time of Disposition: 21:04
[2024-06-24 21:10] VITALS: BP 133/79; PULSE 75; RESP 19; TEMP 97.7
== END 2024-06-24 21:10 | disposition home or self-care (01) ==
LOC: SUPCPDRO 19:15 → EC 19:15
DX: J06.9 Acute upper respiratory infection, unspecified (principal); Z87.891 Personal history of nicotine dependence; Z88.1 Allergy status to other antibiotic agents; Z88.8 Allergy status to other drugs, medicaments and biological substances
CPT/HCPCS: 87636; 71046; 99284; 96372 ×2; J1885; J2919